=== PATIENT | female | born 1990 | race Caucasian/White ===

== ENCOUNTER 2020-05-29 15:32 | Emergency (ER) | payer MEDICAID ==
[2020-05-29] MEDS ORDERED: Diphtheria,Pertussis(Acell),Tetanus Vaccine 0.5 ML Syringe IM ONE (15:56)
[2020-05-29 16:00] VITALS: PULSE 86
--- NOTE | 2020-05-29 16:10 | EDM.PDOC ---
ED HPI GENERAL MEDICAL PROBLEM - General Chief Complaint: Laceration Stated Complaint: LFT RING FINGER CUT Time Seen by Provider: 05/29/20 15:39 Source of Information: Reports: Patient History Limitations: Reports: No Limitations - History of Present Illness INITIAL COMMENTS - FREE TEXT/NARRATIVE: HISTORY AND PHYSICAL: History of present illness: Patient is a 30-year-old female who presents to the emergency room with a laceration on her right fourth finger lateral side that happened when she was wiping off the counter and struck a open can. Happened about 20 minutes prior to arrival. She is unsure of her tetanus status. Patient denies any fever, chills, headache, change in vision, syncope or near syncope. Denies any chest pain, back pain, shortness of breath or cough. Denies any abdominal pain, nausea, vomiting, diarrhea, constipation or dysuria. Has not noted any blood in urine or stool. Patient has been eating and drinking appropriately. Review of systems: As per history of present illness and below otherwise all systems reviewed and negative. Past medical history: As per history of present illness and as reviewed below otherwise noncontributory. Surgical history: As per history of present illness and as reviewed below otherwise noncontributory. Social history: See social history for further information Family history: As per history of present illness and as reviewed below otherwise noncontributory. Physical exam: General: Well developed and well nourished. Alert and orientated x 3. Nontoxic in appearance and in no acute distress. Vital signs are stable and have been reviewed by me. Nursing notes were reviewed. HEENT: Atraumatic, normocephalic, pupils equal and reactive bilaterally, negative for conjunctival pallor or scleral icterus, mucous membranes moist, neck supple, nontender, trachea midline. No drooling or trismus noted. No meningeal signs. No hot potato voice noted. Lungs: Clear to auscultation bilaterally. No wheezes, rales, or rhonchi. Chest nontender. Normal work of breathing, no accessory muscles used. Heart: S1S2, regular rate and rhythm without overt murmur, gallops, or rubs. No JVD. No peripheral edema Abdomen: Soft, nondistended, nontender. Normoactive bowel sounds. Negative for masses or costovertebral tenderness. Skin: Right fourth finger lateral distal phalanx with 1cm crescent shape laceration with clean edges. CMS intact. No obvious deformity. Hematologic: No petechiae or purpra. Mucosa appropriate color and normal nail bed color and refill. Extremities: Moves all extremities per self without difficulty or deficits, negative for cords or calf pain. Neurovascular unremarkable. Neuro: Awake, alert, oriented. Cranial nerves II through XII unremarkable. Cerebellum unremarkable. Motor and sensory unremarkable throughout. Exam nonfocal. Psychiatric: Mood and affect are appropriate. Normal thought process. Answering questions appropriately. Notes: *This patient was seen and evaluated during the 2019 SARS-CoV-2 novel coronavirus pandemic period. Community viral transmission is ongoing at time of this encounter and the emergency department is operating under pandemic response procedures. Patient will is agreeable to the plan of suture placement wound closure. Wound was appropriately cleaned and draped. 3 sutures were used in closing of the wound. No complications noted. Wound education given to the patient and the patient verbalized understanding. I have talked with the patient about today's findings, in addition to providing specific details for plan of care. Reassessment at the time of disposition demonstrates that the patient is in no acute distress. The patient is stable for discharge, counseling was provided and we discussed in great detail signs and symptoms that would prompt them to return to the Emergency Department. Medication, follow up and supportive care measures were reviewed and discussed. Voices understanding and is agreeable to plan of care. Denies any further questions or concerns at this time. Therapeutics: Lidocaine 1% Prescription: None Impression: Laceration Plan: 1. You were evaluated today on an emergent basis. Your wound was cleaned and repaired with sutures. Wear a dressing on the wound when working in a dirty area. Do not submerge the wound in water. You can have the sutures removed in 7 to 10 days. 2. You can alternate Tylenol and ibuprofen as needed for pain and fever management. 3. We encourage you to follow up with your primary care provider and/or recommended specialist in the next few days for re-evaluation and further care/management. 4. If your symptoms should worsen, new symptoms develop or any of the signs and symptoms we discussed should arise please return to the emergency room or call 911 (if needed). Definitive disposition and diagnosis as appropriate pending reevaluation and review of above. - Related Data Allergies Allergy/AdvReac Type Severity Reaction Status Date / Time cefaclor [From Ceclor] Allergy Hives Verified 05/29/20 15:57 Penicillins Allergy Hives Verified 05/29/20 15:57 Home Meds: Home Meds . [No Known Home Meds] 01/19/14 [History] ED ROS GENERAL - Review of Systems Review Of Systems: Comprehensive ROS is negative, except as noted in HPI. ED EXAM, SKIN/RASH Exam: See Below (The dictation) ED SKIN PROCEDURES - Laceration/Wound Repair Right Lateral Digit - 4th (Ring) Appearance: Superficial, Clean Distal NVT: Neuro & Vascular Intact, No Tendon Injury Anesthetic Type: Local Local Anesthesia - Lidocaine (Xylocaine): 1% Plain Local Anesthetic Volume: 2cc Skin Prep: Chlorhexidine (Hibiciens) Exploration/Debridement/Repair: Wound Explored Closed with: Sutures Lac/Wound length In cm: 1 Suture Size: 3-0 # of Sutures: 3 Suture Type: Prolene Tetanus Status Addressed: No Course - Vital Signs Last Recorded V/S: Last Vital Signs Temp 99 F 05/29/20 15:57 Pulse 86 05/29/20 15:57 Resp 18 05/29/20 15:57 BP 121/75 05/29/20 15:57 Pulse Ox 97 05/29/20 15:57 - Orders/Labs/Meds Orders: Active Orders 24 hr Category Date Time Status Vaccines to be Administered [RC] PER UNIT ROUTINE Care 05/29/20 15:56 Active Meds: Medications Discontinued Medications Generic Name Dose Route Start Last Admin Trade Name Freq PRN Reason Stop Dose Admin Bacitracin 1 dose 05/29/20 16:27 Bacitracin Oint 1 Gm U/D Packet TOP 05/29/20 16:28 ONETIME ONE Diphtheria/Tetanus/Acell Pertussis 0.5 ml 05/29/20 15:56 05/29/20 16:10 Diphtheria,Pertussis(Acell),Tetanus Vaccine 0.5 Ml Syringe IM 05/29/20 15:57 0.5 ml .ONCE ONE Administration Lidocaine HCl 5 ml 05/29/20 15:59 05/29/20 16:10 Lidocaine 1% 5 Ml Sdv INJECT 05/29/20 16:00 5 ml ONETIME ONE Administration Departure - Departure Time of Disposition: 16:28 Disposition: Home, Self-Care 01 Condition: Good Clinical Impression: Laceration - Discharge Information *PRESCRIPTION DRUG MONITORING PROGRAM REVIEWED*: Not Applicable *COPY OF PRESCRIPTION DRUG MONITORING REPORT IN PATIENT [place]: Not Applicable Instructions: Laceration Care, Adult Referrals: PCP,None [Primary Care Provider] - Forms: ED Department Discharge Additional Instructions: The following information is given to patients seen in the emergency department who are being discharged to home. This information is to outline your options for follow-up care. We provide all patients seen in our emergency department with a follow-up referral. The need for follow-up, as well as the timing and circumstances, are variable depending upon the specifics of your emergency department visit. If you don't have a primary care physician on staff, we will provide you with a referral. We always advise you to contact your personal physician following an emergency department visit to inform them of the circumstance of the visit and for follow-up with them and/or the need for any referrals to a consulting specialist. The emergency department will also refer you to a specialist when appropriate. This referral assures that you have the opportunity for follow-up care with a specialist. All of these measure are taken in an effort to provide you with optimal care, which includes your follow-up. Under all circumstances we always encourage you to contact your private physician who remains a resource for coordinating your care. When calling for follow-up care, please make the office aware that this follow-up is from your recent emergency room visit. If for any reason you are refused follow-up, please contact the [facility] Emergency Department at and asked to speak to the emergency department charge nurse. [facility] - Primary Care [address] [place] [id number] [address] Plan: 1. You were evaluated today on an emergent basis. Your wound was cleaned and repaired with sutures. Wear a dressing on the wound when working in a dirty area. Do not submerge the wound in water. You can have the sutures removed in 7 to 10 days. 2. You can alternate Tylenol and ibuprofen as needed for pain and fever management. 3. We encourage you to follow up with your primary care provider and/or recommended specialist in the next few days for re-evaluation and further care/management. 4. If your symptoms should worsen, new symptoms develop or any of the signs and symptoms we discussed should arise please return to the emergency room or call 911 (if needed). Sepsis Event Note (ED) - Focused Exam Vital Signs: Vital Signs Temp Pulse Resp BP Pulse Ox 05/29/20 15:57 99 F 86 18 121/75 97 - My Orders Last 24 Hours: My Active Orders 05/29/20 15:56 Vaccines to be Administered [RC] PER UNIT ROUTINE - Assessment/Plan Last 24 Hours: My Active Orders 05/29/20 15:56 Vaccines to be Administered [RC] PER UNIT ROUTINE
[2020-05-29] MEDS ORDERED: Bacitracin Oint 1 GM U/D Packet TOP ONE (16:27)
[2020-05-29 16:37] VITALS: BP 120/77
== END 2020-05-29 16:38 | disposition home or self-care (01) ==
LOC: MW.ED 15:32
DX: S61.214A Laceration without foreign body of right ring finger without damage to nail, initial encounter (principal); Z88.1 Allergy status to other antibiotic agents; Z88.0 Allergy status to penicillin; Z23 Encounter for immunization; W26.8XXA Contact with other sharp object(s), not elsewhere classified, initial encounter
CPT/HCPCS: 12001; 90471; 90715; 99282-25

== ENCOUNTER 2021-12-30 13:58 | Emergency (ER) | payer SELFPAY ==
[2021-12-30 15:09] VITALS: BP 129/85; PULSE 83
== END 2021-12-30 14:39 ==
LOC: MW.ED 13:58
DX: Z02.89 Encounter for other administrative examinations (principal); Z88.1 Allergy status to other antibiotic agents; Z88.0 Allergy status to penicillin; Z90.49 Acquired absence of other specified parts of digestive tract
CPT/HCPCS: 99282; 99283

== ENCOUNTER 2022-03-18 19:35 | Emergency (ER) | payer MEDICAID ==
[2022-03-18] MEDS ORDERED: Ampicillin/Sulbactam Na 3 GM in Sodium Chloride 0.9% 100 ML IV ONE (19:41)
[2022-03-18] MEDS ORDERED: Lactated Ringers 1,000 ML IV ONE ×2 (19:44→22:16)
[2022-03-18] MEDS ORDERED: HYDROmorphone 1 MG/ML Syringe IVPUSH ONE (19:49)
[2022-03-18 20:26] LABS: CORONAVIRUS COVID-19 NAA NEGATIVE (NEGATIVE); INFLUENZA A NAA NEGATIVE (NEGATIVE); INFLUENZA B NAA NEGATIVE (NEGATIVE); RESPIRATORY SYNCYTIAL VIR NAA NEGATIVE (NEGATIVE)
[2022-03-18 20:36] LABS: CARBON DIOXIDE,CO2 26.6 mmol/L (21.0-32.0); POTASSIUM,K 3.8 mmol/L (3.5-5.1)
[2022-03-18] MEDS ORDERED: Iopamidol 755 MG/ML 500 ML Multipack Bottle IVPUSH STA (21:19)
[2022-03-18] MEDS ORDERED: Acetaminophen 325 MG Tab PO ONE (23:54)
[2022-03-18] MEDS ORDERED: Ibuprofen 400 MG Tab PO ONE (23:54)
[2022-03-19 00:10] VITALS: BP 109/64; PULSE 84
== END 2022-03-19 00:14 | disposition home or self-care (01) ==
LOC: MW.ED 19:35
DX: L08.9 Local infection of the skin and subcutaneous tissue, unspecified (principal); Z88.0 Allergy status to penicillin; Z88.1 Allergy status to other antibiotic agents; Z20.822 Contact with and (suspected) exposure to COVID-19
CPT/HCPCS: 0241U; 36415; 70491; 80053; 82009; 83605; 84703; 85025; 87040; 96361; 96365; 96375; 99284; A9270; J0295; J1170; J7120; Q9967

== ENCOUNTER 2022-07-26 16:07 | Emergency (ER) | payer MEDICAID ==
[2022-07-26 16:36] LABS: BASOPHILS PERCENT AUTO 0.2 % (0.0-1.5); EOSINOPHILS ABSOLUTE AUTO 0.1 K/uL (0.0-0.7); EOSINOPHILS PERCENT AUTO 1.3 % (0.0-7.0); HEMATOCRIT 39.9 % (36.0-46.0); HEMOGLOBIN 13.5 g/dL (12.0-16.0); LYMPHOCYTES ABSOLUTE AUTO 5.4 K/uL (0.6-2.4); LYMPHOCYTES PERCENT AUTO 63.3 % (16.0-40.0); MEAN CORPUSCULAR HEMOGLOBIN 29.8 pg (27.0-32.0); MEAN CORPUSCULAR HGB CONC 33.8 g/dL (31.0-37.0); MEAN CORPUSCULAR VOLUME 88.1 fL (80.0-98.0); MONOCYTES ABSOLUTE AUTO 0.6 K/uL (0.0-0.8); MONOCYTES PERCENT AUTO 6.7 % (0.0-15.0); NEUTROPHILS ABSOLUTE AUTO 2.4 K/uL (1.4-5.7); NEUTROPHILS PERCENT AUTO 28.5 % (48.0-80.0); NRBC ABSOLUTE 0 K/uL; PLATELET COUNT,PLT 237 K/uL (150-400); RED BLOOD CELL COUNT 4.53 M/uL (4.30-5.90); WHITE BLOOD CELL COUNT,WBC 8.48 K/uL (4.0-11.0)
[2022-07-26 16:48] LABS: A/G RATIO 1.2 (0.9-1.6); ALBUMIN 3.6 g/dL (3.4-5.0); BILIRUBIN TOTAL 0.2 mg/dL (0.2-1.0); CARBON DIOXIDE,CO2 25.2 mmol/L (21.0-32.0); CREATININE 0.9 mg/dL (0.6-1.0); EST CRCL DRUG DOSING (CG) 80.73 mL/min; POTASSIUM,K 3.4 mmol/L (3.5-5.1); PROTEIN TOTAL,TP 6.7 g/dL (6.4-8.2)
[2022-07-26 17:26] LABS: LACTIC ACID 0.8 mmol/L (0.4-2.0)
[2022-07-26] MEDS ORDERED: Acetaminophen 325 MG Tab PO ONE (18:02)
[2022-07-26] MEDS ORDERED: Ibuprofen 400 MG Tab PO ONE (18:02)
[2022-07-26] MEDS ORDERED: Lidocaine 4% 1 each Patch TOP PRN (18:03)
[2022-07-26 19:34] VITALS: BP 117/89; PULSE 76
== END 2022-07-26 18:37 | disposition home or self-care (01) ==
LOC: MW.ED 16:07
DX: R07.89 Other chest pain (principal); Z88.0 Allergy status to penicillin; Z88.1 Allergy status to other antibiotic agents
CPT/HCPCS: 36415; 71045; 80053; 83605; 84484; 85025; 85379; 87040; 93005; 99285; A9270; 93010; 99283

== ENCOUNTER 2024-01-29 12:56 | Emergency (ER) | payer OTHER, BC ==
[2024-01-29 14:33] VITALS: BP 126/89; PULSE 85
== END 2024-01-29 15:50 | disposition home or self-care (01) ==
LOC: MW.ED 12:56
DX: S93.601A Unspecified sprain of right foot, initial encounter (principal); Z88.0 Allergy status to penicillin; Z88.8 Allergy status to other drugs, medicaments and biological substances; Z79.891 Long term (current) use of opiate analgesic; Z90.49 Acquired absence of other specified parts of digestive tract; X50.1XXA Overexertion from prolonged static or awkward postures, initial encounter; Z75.8 Other problems related to medical facilities and other health care
CPT/HCPCS: 73610-26-RT; 73610-RT; 73620-26-RT; 73620-RT; 99283